=== PATIENT | female | born 1955 | race Native Hawaiian/Other Pacific Islander ===

== ENCOUNTER 2017-08-28 11:15 | Outpatient (CLI) | payer OTHER | END 2017-08-28 20:19 | disposition home or self-care (01) | LOC: SMA 11:15 | PROVIDERS: ATTEND Family Medicine | DX: Z12.31 Encounter for screening mammogram for malignant neoplasm of breast (principal); N63.10 Unspecified lump in the right breast, unspecified quadrant | CPT/HCPCS: 77067 ==

== ENCOUNTER 2017-08-30 13:58 | Outpatient (CLI) | payer OTHER | END 2017-08-30 17:46 | disposition home or self-care (01) | LOC: SUS 13:58 | PROVIDERS: ATTEND Family Medicine | DX: N63.10 Unspecified lump in the right breast, unspecified quadrant (principal) | CPT/HCPCS: 76642 ==

== ENCOUNTER 2018-06-21 10:53 | Outpatient (CLI) | payer OTHER ==
[2018-06-21] MEDS ORDERED: IOHEXOL 100 ML IV ONE (11:27)
== END 2018-06-21 20:50 | disposition home or self-care (01) ==
LOC: SCT 10:53
PROVIDERS: ATTEND Family Medicine
DX: J34.2 Deviated nasal septum (principal)
CPT/HCPCS: 70487; Q9967

== ENCOUNTER 2020-02-25 13:11 | Outpatient (CLI) | payer OTHER | END 2020-02-25 20:21 | disposition home or self-care (01) | LOC: SUS 13:11 | PROVIDERS: ATTEND Family Medicine | DX: Z12.31 Encounter for screening mammogram for malignant neoplasm of breast (principal); N39.0 Urinary tract infection, site not specified | CPT/HCPCS: 76770; 77067 ==

== ENCOUNTER 2021-03-31 11:30 | Outpatient (CLI) | payer OTHER | END 2021-03-31 20:37 | disposition home or self-care (01) | LOC: SMA 11:30 | PROVIDERS: ATTEND Family Medicine | DX: Z12.31 Encounter for screening mammogram for malignant neoplasm of breast (principal) | CPT/HCPCS: 77067 ==